=== PATIENT | male | born 1940 | race African-American/Black ===

== ENCOUNTER 2018-03-05 14:57 | Emergency (ER) | payer OTHER ==
[2018-03-05 15:27] VITALS: BP 113/57
--- NOTE | 2018-03-05 15:41 | UC ---
UC General HPI - HPI Summary HPI Summary: 77 yo gentleman c/o R hand pain and swelling, x approx 3 weeks. Worse in proximal hand / dorsal wrist, but difficult to ascertain point tenderness. 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 Hurts wrist to move fingers, but able to move fingers / thumb. No elbow pain. Mr. Lala resides in [facility], visiting until Saturday (today is Sat). Hx gout with similar pain in his foot (doesn't recall laterality) several years ago. He is R handed. No p/d. + swelling, feels that since he has been on a liquid diet with alonzo juice, the swelling has decreased. However, today he was tired of the pain, and request treatment. Denies renal issues, reports that he recently had blood work drawn a few weeks ago per PCP, and things were ok. Denies trauma. No recent illness, fever, rash. No other joint pain or swelling. He does have a hx heart murmur. No sob / cp. No GI concerns or report of melena / brbpr. - History of Current Complaint Chief Complaint: UCUpperExtremity Stated Complaint: RT HAND COMPLAINT - POSS GOUT Time Seen by Provider: 03/05/18 15:26 Hx Obtained From: Patient Pain Intensity: 8 - Allergy/Home Medications Allergies/Adverse Reactions: Allergies Allergy/AdvReac Type Severity Reaction Status Date / Time No Known Allergies Allergy Verified 03/05/18 15:23 Home Medications: Home Medications Furosemide TAB* [Lasix TAB*] 20 mg PO DAILY 03/05/18 [History Confirmed 03/05/18 ] amLODIPine TAB* [Norvasc 5 mg TAB*] 10 mg PO DAILY 03/05/18 [History Confirmed 03/05/18] PMH/Surg Hx/FS Hx/Imm Hx Previously Healthy: Yes - see hpi - Surgical History Surgical History: None - Family History Known Family History: Positive: Unknown - Social History Occupation: Retired Alcohol Use: Daily Alcohol Amount: glass wine Substance Use Type: None Smoking Status (MU): Never Smoked Tobacco Review of Systems Constitutional: Negative Skin: Negative Eyes: Negative ENT: Negative Respiratory: Negative Cardiovascular: Negative Gastrointestinal: Negative Genitourinary: Negative Motor: Other - see hpi Neurovascular: Other - see hpi Musculoskeletal: Arthralgia Neurological: Negative Psychological: Negative Is Patient Immunocompromised?: No All Other Systems Reviewed And Are Negative: Yes Physical Exam Triage Information Reviewed: Yes Appearance: Well-Appearing - sitting up in chair, Well-Nourished Vital Signs: Initial Vital Signs Temp 99.3 F 03/05/18 15:16 Pulse 62 03/05/18 15:16 Resp 17 03/05/18 15:16 BP 113/57 03/05/18 15:16 Pulse Ox 99 03/05/18 15:16 Vital Signs Reviewed: Yes Eye Exam: Normal - grossly normal ENT Exam: Normal - grossly normal, detailed not done Neck exam: Normal - no c/o, no pain Respiratory Exam: Normal Respiratory: Positive: Chest non-tender, Lungs clear, Normal breath sounds, No respiratory distress, No accessory muscle use Cardiovascular Exam: Other - 2/6 syst murmur, lsb Cardiovascular: Positive: RRR, Pulses Normal - R / U pulses palbable to affected wrist, Brisk Capillary Refill Abdominal Exam: Normal Abdomen Description: Positive: Nontender Musculoskeletal Exam: Other - moves x 4 ext's, gait slow steady. R Hand + swelling hand / digits / wrist. Much of swelling appears c/w dependent edema. +tender pressure mid dorsal wrist. No rash. No crepitus. Distal cr < 2 sec x 5 dig. + distal sens LT present x 5 dig. Moves all 5 digits, incl "ok" sign. unable to do "ok" thumb and 5th dig d/t pain. Elbow nontender, able to straighten. 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 Lala to consider blood work (crp, sed, uric acid, renal fxn, inflm markers). He carefully considered this, but politely but firmly declines. Reports that he just wants medication for the gout, and that's it. Declines sling or wrist splint, has been trying to elevate. He reports that he plans to f/u with PCP in [facility] upon return, o[place]al[place] if worse or new problems. He is aware that other issues besides gout could be at play here, but he does not want ancillary studies or further w/u now. Questions as posed answered to the best of my ability. - Differential Dx - Multi-Symptom Provider Diagnoses: R hand swelling, likely gout. see above Discharge - Sign-Out/Discharge Documenting (check all that apply): Discharge/Admit/Transfer - Discharge Plan Condition: Stable Disposition: HOME Prescriptions: Allopurinol TAB* [Zyloprim 100 MG TAB*] 200 mg PO DAILY #14 tab Colchicine* [Colcrys*] 0.6 mg PO DAILY PRN #6 tab PRN Reason: Pain Patient Education Materials: Low Purine Diet (ED), Gout (ED) Referrals: Non Staff,Doctor [Primary Care Provider] - Additional Instructions: Follow up with your primary care physician, Dr. Ch. Zurita (in [facility]), upon return home next week. Please seek medical attention for worse or new problems in the meantime. - Billing Disposition and Condition Condition: STABLE Disposition: Home
== END 2018-03-05 15:58 | disposition home or self-care (01) ==
LOC: UCCORT 14:57
DX: M79.89 Other specified soft tissue disorders (principal); M79.641 Pain in right hand; R29.898 Other symptoms and signs involving the musculoskeletal system; R01.1 Cardiac murmur, unspecified
CPT/HCPCS: 99202; G0463